=== PATIENT | male | born 1990 | race Two or more races ===

== ENCOUNTER 2024-05-03 19:40 | Inpatient (IN) | payer MEDICAID, OTHER ==
[~2024-05-03] VITALS: Ht 175.3 cm; Wt 80.4 kg
[2024-05-03] MEDS: LORazepam 2MG/ML-1ML VIAL IV ONE (20:15)
[2024-05-03 20:24] LABS: Urine Bacteria None Seen /hpf (None Seen)
[2024-05-03 20:43] LABS: Urine Blood Negative /uL (Negative); Urine Clarity Clear (Clear); Urine Color Dark-Yellow (Yellow); Urine Protein, UAD Negative (Negative); Urine Specific Gravity 1.014 (1.001-1.035); Urine Urobilinogen 6 mg/dL (Negative); Urine WBC 1 /hpf (0 - 3); Urine pH 7.5 (5.0-9.0)
[2024-05-03 21:24] LABS: Basophils # (auto) 0 10 ^3/uL (0-0.2); Basophils % (auto) 0.3 % (0.0-2.0); Eosinophils # (auto) 0.1 10 ^3/uL (0-0.8); Eosinophils % (auto) 1.1 % (0.0-7.0); Hematocrit 35.8 % (41.0-53.0); Hemoglobin 12.2 g/dL (13.5-17.5); Lymphocytes # (auto) 0.4 10 ^3/uL (0.4-5.4); Lymphocytes % (auto) 5.2 % (10.0-50.0); Mean Corpuscular Hgb Conc. 34.1 g/dL (32.0-36.0); Mean Corpuscular Volume 96.7 fL (80.0-100.0); Monocytes # (auto) 0.5 10 ^3/uL (0-1.3); Monocytes % (auto) 6.9 % (0.0-12.0); Neutrophils % (auto) 86.5 % (37.0-80.0)
[2024-05-03 21:25] LABS: Alanine Aminotransferase 85 U/L (7-40); Albumin 3.3 g/dL (3.2-4.8); Alkaline Phosphatase 149 U/L (46-116); Anion Gap 4 (5-15); Aspartate Aminotransferase 189 U/L (13-40); Bilirubin, Total 10.6 mg/dL (0.2-1.0); Calcium 8.5 mg/dL (8.5-10.1); Carbon Dioxide 26 mmol/L (20-30); Chloride 102 mmol/L (98-107); Glucose 116 mg/dL (74-106); Potassium 4.3 mmol/L (3.5-5.1); Red Cell Distribution Width 20.7 % (11.8-14.3); Sodium 132 mmol/L (136-145); Total Protein 6.7 g/dL (5.7-8.2)
[2024-05-03 21:28] LABS: Blood Urea Nitrogen < 5 mg/dL (9-23)
[2024-05-03 21:33] LABS: BUN/Creatinine Ratio 6.7 (10.0-20.0)
[2024-05-03] MEDS: PANTOPRAZOLE 40 MG/10 ML VIAL INJ IV ONE (21:37)
[2024-05-03] MEDS: ONDANSETRON HCL 4 MG/2 ML VIAL IV ONE (21:38)
[2024-05-03] MEDS: MORPHINE SULFATE 4 MG/ML SYR/VIAL IV ONE (21:39)
[2024-05-03 21:43] LABS: Lipase 66 U/L (12-53)
[2024-05-03 21:52] LABS: Anisocytosis Slight; Platelet Estimate Decreased
[2024-05-03] MEDS: SODIUM CHLORIDE 0.9% 1,000 ML IV ONE (22:03)
[2024-05-04 03:30] VITALS: PULSE 86; RESP 16; O2SAT 96
[2024-05-04] MEDS ORDERED: HYDROcodone-ACET 5/325MG TAB PO PRN (05:30)
[2024-05-04] MEDS ORDERED: DOCUSATE SOD 100 MG CAP PO PRN (05:30)
[2024-05-04] MEDS: SODIUM CHLORIDE 0.9% 1,000 ML IV SCH (05:30)
[2024-05-04] MEDS ORDERED: IBUPROFEN 600 MG TAB PO PRN (05:30)
[2024-05-04] MEDS ORDERED: NITROGLYCERIN 0.4 MG SL TAB SL PRN (06:00)
[2024-05-04] MEDS ORDERED: MORPHINE SULFATE INJ 2 MG/ml SYRG IV PRN (06:00)
[2024-05-04 07:10] LABS: Basophils # (auto) 0 10 ^3/uL (0-0.2); Basophils % (auto) 0.2 % (0.0-2.0); Eosinophils # (auto) 0.1 10 ^3/uL (0-0.8); Eosinophils % (auto) 2.3 % (0.0-7.0); Hematocrit 32.7 % (41.0-53.0); Hemoglobin 11.3 g/dL (13.5-17.5); Lymphocytes # (auto) 0.5 10 ^3/uL (0.4-5.4); Lymphocytes % (auto) 9.1 % (10.0-50.0); Mean Corpuscular Hemoglobin 33.3 pg (28.0-32.0); Mean Corpuscular Hgb Conc. 34.5 g/dL (32.0-36.0); Mean Corpuscular Volume 96.3 fL (80.0-100.0); Monocytes # (auto) 0.5 10 ^3/uL (0-1.3); Monocytes % (auto) 10.6 % (0.0-12.0); Neutrophils # (auto) 3.9 10 ^3/uL (1.6-8.6); Neutrophils % (auto) 77.8 % (37.0-80.0); Nucleated Red Blood Cells % 0.2 %; White Blood Cell 5.1 10^3/uL (4.4-10.8)
[2024-05-04 07:21] LABS: Alanine Aminotransferase 76 U/L (7-40); Alkaline Phosphatase 124 U/L (46-116); Anion Gap 4 (5-15); Aspartate Aminotransferase 169 U/L (13-40); Calcium 8.1 mg/dL (8.5-10.1); Carbon Dioxide 27 mmol/L (20-30); Chloride 102 mmol/L (98-107); Glucose 93 mg/dL (74-106); Potassium 3.9 mmol/L (3.5-5.1); Sodium 133 mmol/L (136-145)
[2024-05-04 07:22] LABS: Bilirubin, Total 12.9 mg/dL (0.2-1.0); Total Protein 6.2 g/dL (5.7-8.2)
[2024-05-04 07:26] LABS: Blood Urea Nitrogen < 5 mg/dL (9-23)
[2024-05-04 07:35] LABS: Red Cell Distribution Width 20.4 % (11.8-14.3)
[2024-05-04 07:38] LABS: BUN/Creatinine Ratio 7.1 (10.0-20.0)
[2024-05-04] MEDS: ONDANSETRON HCL 4 MG/2 ML VIAL IV PRN (09:06)
[2024-05-04] MEDS: PANTOPRAZOLE 40 MG/10 ML VIAL INJ IV SCH (09:06)
[2024-05-04] MEDS: THIAMINE HCL 100 MG TAB PO SCH (09:08)
[2024-05-04] MEDS: FOLIC ACID 1 MG TAB PO SCH (09:08)
[2024-05-04] MEDS: MORPHINE SULFATE INJ 2 MG/ml SYRG IV PRN (09:09)
[2024-05-04 11:10] VITALS: PULSE 74; RESP 14; O2SAT 97
[2024-05-04] MEDS: MULTIPLE VITAMIN TAB PO SCH (11:17)
[2024-05-04 12:33] VITALS: BP 125/73; PULSE 72; PULSE 77; RESP 16; RESP 18; TEMP 98.3; O2SAT 95
[2024-05-04 13:00] VITALS: BP 125/73; PULSE 72; RESP 17; TEMP 98.4; O2SAT 97
[2024-05-04 17:00] VITALS: BP 121/82; PULSE 83; RESP 17; TEMP 99; O2SAT 97
[2024-05-04 21:00] VITALS: BP 128/74; PULSE 73; RESP 18; TEMP 98.1; O2SAT 97
[2024-05-05 01:00] VITALS: BP 96/57; PULSE 77; RESP 18; TEMP 98.1; O2SAT 97
[2024-05-05 05:00] VITALS: BP 122/75; PULSE 80; RESP 19; TEMP 98.3; O2SAT 98
[2024-05-05 06:59] LABS: Basophils # (auto) 0 10 ^3/uL (0-0.2); Basophils % (auto) 0.3 % (0.0-2.0); Eosinophils # (auto) 0.1 10 ^3/uL (0-0.8); Eosinophils % (auto) 2.4 % (0.0-7.0); Hemoglobin 11.3 g/dL (13.5-17.5); Lymphocytes # (auto) 0.7 10 ^3/uL (0.4-5.4); Lymphocytes % (auto) 15.5 % (10.0-50.0); Mean Corpuscular Hemoglobin 33.2 pg (28.0-32.0); Mean Corpuscular Hgb Conc. 34.3 g/dL (32.0-36.0); Mean Corpuscular Volume 96.7 fL (80.0-100.0); Monocytes # (auto) 0.6 10 ^3/uL (0-1.3); Monocytes % (auto) 13.7 % (0.0-12.0); Neutrophils # (auto) 3.2 10 ^3/uL (1.6-8.6); Neutrophils % (auto) 68.1 % (37.0-80.0); Nucleated Red Blood Cells % 0.3 %; Red Blood Cells 3.41 10^6/uL (4.5-5.90); Red Cell Distribution Width 20.3 % (11.8-14.3); White Blood Cell 4.7 10^3/uL (4.4-10.8)
[2024-05-05 07:35] LABS: Alanine Aminotransferase 70 U/L (7-40); Albumin 2.8 g/dL (3.2-4.8); Alkaline Phosphatase 113 U/L (46-116); Anion Gap 6 (5-15); Aspartate Aminotransferase 160 U/L (13-40); Calcium 8.2 mg/dL (8.7-10.4); Carbon Dioxide 25 mmol/L (20-30); Chloride 105 mmol/L (98-107); Glucose 93 mg/dL (74-106); Potassium 3.6 mmol/L (3.5-5.1); Sodium 136 mmol/L (136-145)
[2024-05-05 07:36] LABS: Bilirubin, Total 10.1 mg/dL (0.2-1.0); Total Protein 5.9 g/dL (5.7-8.2)
[2024-05-05 07:48] LABS: Blood Urea Nitrogen < 5 mg/dL (9-23)
[2024-05-05 08:11] LABS: BUN/Creatinine Ratio 7.2 (10.0-20.0)
[2024-05-05 08:34] VITALS: BP 107/70; PULSE 57; RESP 16; TEMP 97.9; O2SAT 99
[2024-05-05 12:48] VITALS: BP 116/77; PULSE 66; RESP 16; TEMP 97.9; O2SAT 100
[2024-05-05 16:34] VITALS: BP 107/64; PULSE 75; RESP 16; TEMP 98.4; O2SAT 95
[2024-05-05 21:00] VITALS: BP 113/73; PULSE 85; RESP 18; TEMP 98.3; O2SAT 96
[2024-05-05 21:22] LABS: INR 1.34 (0.9-1.15); Partial Thromboplastin Time 29.1 SEC (24.5-34.5); Prothrombin Time 13.9 sec (9.3-11.8)
[2024-05-05 21:23] LABS: Albumin 2.7 g/dL (3.2-4.8); Bilirubin, Total 8.1 mg/dL (0.2-1.0)
[2024-05-05 21:24] LABS: Total Protein 5.6 g/dL (5.7-8.2)
[2024-05-05 21:37] LABS: Bilirubin, Direct 6.8 mg/dL (<0.3)
[2024-05-06 01:00] VITALS: BP 107/69; PULSE 69; RESP 16; TEMP 97.9; O2SAT 94
[2024-05-06 05:00] VITALS: BP 102/64; PULSE 71; RESP 18; TEMP 98; O2SAT 96
[2024-05-06 05:45] LABS: Basophils # (auto) 0 10 ^3/uL (0-0.2); Basophils % (auto) 0.6 % (0.0-2.0); Eosinophils # (auto) 0.2 10 ^3/uL (0-0.8); Eosinophils % (auto) 3.7 % (0.0-7.0); Hemoglobin 11.2 g/dL (13.5-17.5); Lymphocytes # (auto) 0.9 10 ^3/uL (0.4-5.4); Lymphocytes % (auto) 20.7 % (10.0-50.0); Mean Corpuscular Hemoglobin 33.6 pg (28.0-32.0); Mean Corpuscular Volume 98.9 fL (80.0-100.0); Monocytes # (auto) 0.6 10 ^3/uL (0-1.3); Monocytes % (auto) 15.5 % (0.0-12.0); Neutrophils # (auto) 2.4 10 ^3/uL (1.6-8.6); Neutrophils % (auto) 59.5 % (37.0-80.0); Nucleated Red Blood Cells % 0.1 %; Red Blood Cells 3.34 10^6/uL (4.5-5.90); Red Cell Distribution Width 19.9 % (11.8-14.3); White Blood Cell 4.1 10^3/uL (4.4-10.8)
[2024-05-06 06:24] LABS: Alanine Aminotransferase 70 U/L (7-40); Albumin 2.8 g/dL (3.2-4.8); Alkaline Phosphatase 155 U/L (46-116); Anion Gap 6 (5-15); Aspartate Aminotransferase 150 U/L (13-40); Calcium 8.1 mg/dL (8.5-10.1); Carbon Dioxide 25 mmol/L (20-30); Chloride 106 mmol/L (98-107); Glucose 97 mg/dL (74-106); Potassium 3.4 mmol/L (3.5-5.1); Sodium 137 mmol/L (136-145)
[2024-05-06 06:25] LABS: BUN/Creatinine Ratio 6.2 (10.0-20.0); Bilirubin, Total 7.4 mg/dL (0.2-1.0); Blood Urea Nitrogen < 5 mg/dL (9-23); Total Protein 5.8 g/dL (5.7-8.2)
[2024-05-06 08:11] VITALS: BP 109/65; PULSE 69; RESP 16; TEMP 98.3; O2SAT 92
[2024-05-06 12:23] VITALS: BP 109/71; PULSE 71; RESP 16; TEMP 98.4; O2SAT 93
[2024-05-06 16:55] VITALS: BP 128/81; PULSE 79; RESP 18; TEMP 97.6; O2SAT 95
[2024-05-06] MEDS: POTASSIUM EFFERVESENT TAB 25 MEQ PO ONE (17:14)
[2024-05-06 21:00] VITALS: BP 117/71; PULSE 69; RESP 16; TEMP 99.1; O2SAT 95
[2024-05-07 01:00] VITALS: BP 114/72; PULSE 73; RESP 18; TEMP 98.1; O2SAT 97
[2024-05-07 05:00] VITALS: BP 120/82; PULSE 67; RESP 16; TEMP 97.9; O2SAT 94
[2024-05-07 06:37] LABS: Basophils # (auto) 0 10 ^3/uL (0-0.2); Basophils % (auto) 0.7 % (0.0-2.0); Eosinophils # (auto) 0.2 10 ^3/uL (0-0.8); Eosinophils % (auto) 2.9 % (0.0-7.0); Hematocrit 35.2 % (41.0-53.0); Hemoglobin 12.2 g/dL (13.5-17.5); Lymphocytes # (auto) 0.9 10 ^3/uL (0.4-5.4); Lymphocytes % (auto) 13.7 % (10.0-50.0); Mean Corpuscular Hemoglobin 33.8 pg (28.0-32.0); Mean Corpuscular Hgb Conc. 34.5 g/dL (32.0-36.0); Monocytes # (auto) 0.8 10 ^3/uL (0-1.3); Monocytes % (auto) 13.4 % (0.0-12.0); Neutrophils # (auto) 4.4 10 ^3/uL (1.6-8.6); Neutrophils % (auto) 69.3 % (37.0-80.0); Nucleated Red Blood Cells % 0.1 %; Red Blood Cells 3.59 10^6/uL (4.5-5.90); Red Cell Distribution Width 19.9 % (11.8-14.3); White Blood Cell 6.3 10^3/uL (4.4-10.8)
[2024-05-07 07:01] LABS: Alanine Aminotransferase 73 U/L (7-40); Albumin 2.9 g/dL (3.2-4.8); Alkaline Phosphatase 166 U/L (46-116); Anion Gap 6 (5-15); Calcium 8.1 mg/dL (8.5-10.1); Carbon Dioxide 25 mmol/L (20-30); Chloride 104 mmol/L (98-107); Glucose 94 mg/dL (74-106); Magnesium 1.5 mg/dL (1.6-2.6); Potassium 3.8 mmol/L (3.5-5.1); Sodium 135 mmol/L (136-145)
[2024-05-07 07:02] LABS: Aspartate Aminotransferase 150 U/L (13-40); Bilirubin, Total 7.9 mg/dL (0.2-1.0); Total Protein 6.1 g/dL (5.7-8.2)
[2024-05-07 07:12] LABS: BUN/Creatinine Ratio 7.7 (10.0-20.0); Blood Urea Nitrogen < 5 mg/dL (9-23)
[2024-05-07 09:00] VITALS: BP 106/71; PULSE 63; RESP 20; TEMP 98.2; O2SAT 97
[2024-05-07 09:05] LABS: Hepatitis B Surface Antigen Negative (Negative)
[2024-05-07 09:25] LABS: Hepatitis A Ab IgM Negative
[2024-05-07 09:26] LABS: Hepatitis B Core IgM Negative; Hepatitis C Antibody Negative (Negative)
[2024-05-07 13:00] VITALS: BP 116/69; PULSE 75; RESP 20; TEMP 98; O2SAT 97
[2024-05-07 20:58] VITALS: BP 125/80; PULSE 90; RESP 18; TEMP 98.3; O2SAT 97
[2024-05-08 00:41] VITALS: BP 105/70; PULSE 67; RESP 15; TEMP 98.1; O2SAT 97
[2024-05-08 05:00] VITALS: BP 102/66; PULSE 53; RESP 15; TEMP 97.9; O2SAT 97
[2024-05-08 06:36] LABS: Basophils # (auto) 0 10 ^3/uL (0-0.2); Basophils % (auto) 0.2 % (0.0-2.0); Eosinophils # (auto) 0.2 10 ^3/uL (0-0.8); Eosinophils % (auto) 3.9 % (0.0-7.0); Hemoglobin 11.6 g/dL (13.5-17.5); Lymphocytes # (auto) 1.1 10 ^3/uL (0.4-5.4); Lymphocytes % (auto) 24.4 % (10.0-50.0); Mean Corpuscular Hgb Conc. 33.1 g/dL (32.0-36.0); Mean Corpuscular Volume 99.8 fL (80.0-100.0); Monocytes # (auto) 0.7 10 ^3/uL (0-1.3); Monocytes % (auto) 15.3 % (0.0-12.0); Neutrophils # (auto) 2.5 10 ^3/uL (1.6-8.6); Neutrophils % (auto) 56.2 % (37.0-80.0); Nucleated Red Blood Cells % 0.1 %; Red Blood Cells 3.51 10^6/uL (4.5-5.90); Red Cell Distribution Width 19.5 % (11.8-14.3); White Blood Cell 4.5 10^3/uL (4.4-10.8)
[2024-05-08 06:49] LABS: Alanine Aminotransferase 71 U/L (7-40); Albumin 2.8 g/dL (3.2-4.8); Alkaline Phosphatase 141 U/L (46-116); Anion Gap 2 (5-15); Aspartate Aminotransferase 137 U/L (13-40); Bilirubin, Total 7.3 mg/dL (0.2-1.0); Calcium 8.2 mg/dL (8.5-10.1); Carbon Dioxide 29 mmol/L (20-30); Chloride 106 mmol/L (98-107); Glucose 101 mg/dL (74-106); Sodium 137 mmol/L (136-145); Total Protein 5.8 g/dL (5.7-8.2)
[2024-05-08 06:51] LABS: BUN/Creatinine Ratio 6.9 (10.0-20.0); Blood Urea Nitrogen < 5 mg/dL (9-23)
[2024-05-08 08:30] VITALS: BP 103/59; PULSE 54; RESP 19; TEMP 98; O2SAT 97
[2024-05-08 13:30] VITALS: BP 114/75; PULSE 61; RESP 18; TEMP 98.2; O2SAT 99
[2024-05-08 16:09] VITALS: BP 114/75; PULSE 61; RESP 18; TEMP 36.8; O2SAT 99
[2024-05-08 17:01] VITALS: BP 117/75; PULSE 79; RESP 20; TEMP 97.8; O2SAT 97
== END 2024-05-08 16:36 | disposition home or self-care (01) | DRG 280 ==
LOC: ER 19:40 → OVERFLOW 05-04 05:59 → WEST WING 05-04 12:44
PROVIDERS: ADMIT Nurse Practitioner Family; ATTEND Internal Medicine Geriatric Medicine
DX: K70.10 Alcoholic hepatitis without ascites (principal); K85.90 Acute pancreatitis without necrosis or infection, unspecified; D61.818 Other pancytopenia; D68.9 Coagulation defect, unspecified; R16.2 Hepatomegaly with splenomegaly, not elsewhere classified; E87.1 Hypo-osmolality and hyponatremia; K76.0 Fatty (change of) liver, not elsewhere classified; E80.6 Other disorders of bilirubin metabolism; F10.10 Alcohol abuse, uncomplicated; Y90.9 Presence of alcohol in blood, level not specified
CPT/HCPCS: 36415; 74176; 80053; 80074; 80076; 81001; 83690; 83735; 85025; 85610; 85730; C9113; G0378; J2405